=== PATIENT | male | born 1950 | race Caucasian/White ===

== ENCOUNTER → 2018-01-19 | Day surgery (SDC) | payer OTHER, MEDICARE ==
[~2018-01-19] MED LIST: HYDROmorphone 2 MG/ML VIAL IV; LIDOCAINE 1% PF 2 ML VIAL. ID; LIDOCAINE 2% 100 MG/5 ML SYRINGE.; MORPHINE SULFATE 2 MG/ML DISP.SYRIN. IV; ONDANSETRON PF 4 MG/2 ML VIAL. IV; PROCHLORPERAZINE 10 MG/2 ML VIAL. IV; PROPOFOL 20 ML IV; fentaNYL PF VIAL 100 MCG/2 ML VIAL IV
[2018-01-19] MEDS: IV RINGERS,LACTATED 1000ML 1,000 ML IV (08:23)
== END | disposition home or self-care (01) ==
LOC: ENDOS 07:55
DX: K29.50 Unspecified chronic gastritis without bleeding (principal); D50.9 Iron deficiency anemia, unspecified; E11.9 Type 2 diabetes mellitus without complications; E78.00 Pure hypercholesterolemia, unspecified; I10 Essential (primary) hypertension; F17.210 Nicotine dependence, cigarettes, uncomplicated; Z79.82 Long term (current) use of aspirin; Z98.890 Other specified postprocedural states
CPT/HCPCS: 43235; J2704

== ENCOUNTER → 2021-10-21 | Outpatient (CLI) | payer OTHER ==
[2018-01-19 09:40] VITALS: BP 161/81
[~2021-10-21] MED LIST changes: +AMLO-187 PO; +ASPI-630 PO; +ATOR10TA60 PO; +CHOL500062 PO; +CYAN-25 PO; +FERR325T14 PO; +FOLI0.8C PO; +FOLI0.8T5 PO; -HYDROmorphone 2 MG/ML VIAL IV; -LIDOCAINE 1% PF 2 ML VIAL. ID; -LIDOCAINE 2% 100 MG/5 ML SYRINGE.; +LISI5TAB15 PO; +METF500T16 PO; -MORPHINE SULFATE 2 MG/ML DISP.SYRIN. IV; -ONDANSETRON PF 4 MG/2 ML VIAL. IV; +OXYC-325 PO; -PROCHLORPERAZINE 10 MG/2 ML VIAL. IV; -PROPOFOL 20 ML IV; -fentaNYL PF VIAL 100 MCG/2 ML VIAL IV
== END ==
LOC: LAB 10:35
PROVIDERS: ATTEND Surgery
DX: Z01.812 Encounter for preprocedural laboratory examination (principal); Z20.822 Contact with and (suspected) exposure to COVID-19; K80.10 Calculus of gallbladder with chronic cholecystitis without obstruction
CPT/HCPCS: U0003; U0005

== ENCOUNTER 2021-10-26 10:07 | Day surgery (SDC) | payer OTHER ==
[~2021-10-26] VITALS: Ht 182.9 cm; Wt 86.6 kg
[~2021-10-26 10:07] MED LIST changes: +ACETAMINOPHEN 500 MG TABLET PO PRN; +BUPIVACAINE-EPI 0.25% 30 ML VIAL KIT. ONE; +DEXAMETHASONE SOD PHOS 4 MG/ML VIAL ONE; +HYDROmorphone 2 MG/ML INJ. IVP PRN; +IOHEXOL 300 MG/ML 50 ML VIAL. ONE; +IV RINGERS,LACTATED 1000ML 1,000 ML IV SCH; +LIDOCAINE 1% PF 5 ML VIAL. ONE; +MORPHINE SULFATE 2 MG/ML INJ. IVP PRN; +ONDANSETRON PF 4 MG/2 ML VIAL. ONE; -OXYC-325 PO; +PROCHLORPERAZINE 10 MG/2 ML VIAL. IVP PRN; +PROPOFOL 10 MG/ML (20ML) VIAL. IV ONE; +ROCURONIUM 50 MG/5 ML VIAL. ONE; +SURGICEL HEMOSTAT 4X8 EACH. ONE; +fentaNYL PF VIAL 100 MCG/2 ML VIAL IVP PRN; +fentaNYL PF VIAL 100 MCG/2 ML VIAL ONE
[2021-10-26 10:31] VITALS: BP 177/78
--- NOTE | 2021-10-26 12:09 | PDOC1 ---
History and Physical Date of Admission Date of Admission DATE: 10/26/21 TIME: 12:05 Identification/Chief Complaint Chief Complaint Right upper quadrant abdominal pain Source Source: Patient History of Present Illness History of Present Illness 71-year-old male with complaints of abdominal pain right upper quadrant recently hospitalized with gallstone pancreatitis in February 2021 has not had his gallbladder removed and continues to have gallstones by ultrasound Past Medical History Cardiovascular: HTN Pulmonary: No pertinent hx GI: No pertinent hx Heme/Onc: Anemia NOS Hepatobiliary: No pertinent hx Psych: No pertinent hx Rheumatologic: No pertinent hx Infectious disease: No pertinent hx ENT: No pertinent hx Renal/: No pertinent hx Endocrine: Diabetes Dermatology: No pertinent hx Past Surgical History Past Surgical History: Cataract Removal, Other (Colonoscopy) Family History Family History: No Significant Social History Smoke: No ALCOHOL: none Drugs: None Current Medications Current Medications Current Medications Fentanyl Citrate (Fentanyl 2ml Vial) 25 mcg PRN Q5MIN PRN IVP MILD PAIN 1-3; Start 10/26/21 at 06:00; Stop 10/26/21 at 20:00 Fentanyl Citrate (Fentanyl 2ml Vial) 50 mcg PRN Q5MIN PRN IVP MODERATE PAIN 4- 6; Start 10/26/21 at 06:00; Stop 10/26/21 at 19:00 Morphine Sulfate (Morphine Sulfate) 1 mg PRN Q10MIN PRN IVP SEVERE PAIN 7-10; Start 10/26/21 at 06:00; Stop 10/26/21 at 19:00 Ringer's Solution 1,000 ml @ 30 mls/hr Q24H IV Last administered on 10/26/21at 10:51; Start 10/26/21 at 06:00; Stop 10/26/21 at 17:59 Hydromorphone HCl (Dilaudid) 0.5 mg PRN Q10MIN PRN IVP SEVERE PAIN 7-10, 2nd CHOICE; Start 10/26/21 at 06:00; Stop 10/26/21 at 19:00 Prochlorperazine Edisylate (Compazine) 5 mg PACU PRN PRN IVP NAUSEA, MRX1; Start 10/26/21 at 06:00; Stop 10/26/21 at 19:00 Acetaminophen (Tylenol) 1,000 mg 1X PREOP PRN PO PRIOR TO PROCEDURE Last administered on 10/26/21at 10:51; Start 10/26/21 at 06:00; Stop 10/26/21 at 15:00 Cefazolin Sodium/ Dextrose 50 ml @ 100 mls/hr 1X PREOP PRN IV PRIOR TO PROCEDURE; Start 10/26/21 at 06:00; Stop 10/26/21 at 18:00 Bupivacaine HCl/ Epinephrine Bitart (Sensorcain-Epi 0.25% Kit) 30 ml STK-MED ONCE .ROUTE ; Start 10/26/21 at 09:53; Stop 10/26/21 at 09:54; Status DC Iohexol (Omnipaque 300 Mg/ml) 50 ml STK-MED ONCE .ROUTE ; Start 10/26/21 at 09:53; Stop 10/26/21 at 09:54; Status DC Cellulose (Surgicel Hemostat 4x8) 1 each STK-MED ONCE .ROUTE ; Start 10/26/21 at 09:53; Stop 10/26/21 at 09:54; Status DC Active Scripts Active Reported Vitamin B-12 (Cyanocobalamin (Vitamin B-12)) 1,000 Mcg Tablet 2,500 Mcg PO DAILY Folic Acid 0.8 Mg Tablet 1 Mg PO DAILY Vitamin D3 (Cholecalciferol (Vitamin D3)) 125 Mcg Tab.rapdis 125 Mcg PO DAILY Amlodipine Besylate 10 Mg Tablet 10 Mg PO DAILY Ferrous Sulfate 325 Mg Tablet 325 Mg PO DAILY Aspirin 81 Mg Tab.chew 81 Mg PO Metformin Hcl 500 Mg Tablet 500 Mg PO BIDWMEALS Lisinopril 5 Mg Tablet 10 Mg PO DAILY Allergies Allergies: Coded Allergies: No Known Drug Allergies (Unverified , 10/26/21) ROS Gastrointestinal: Yes Abdominal Pain Physical Exam General: Alert, Oriented X3, Cooperative, No acute distress HEENT: Atraumatic, PERRLA, EOMI Lungs: Clear to auscultation, Normal air movement Heart: RRR, no murmurs Abdomen: Normal bowel sounds, Soft, Other (Tender to palpation right upper) Rectal Exam: deferred Extremities: No edema Skin: No significant lesion Neuro: Normal speech Vitals Vitals Vital Signs Date Time Temp Pulse Resp B/P (MAP) Pulse Ox O2 Delivery O2 Flow Rate FiO2 10/26/21 10:43 98.6 80 18 177/78 97 Room Air 98.6 Labs Labs Laboratory Tests Test 10/26/21 10:35 Glucose (Fingerstick) 108 mg/dL (70-99) Laboratory Tests Test 10/26/21 10:35 Glucose (Fingerstick) 108 mg/dL (70-99) VTE Prophylaxis Ordered VTE Prophylaxis Devices: Yes VTE Pharmacological Prophylaxi: Contraindicated Assessment/Plan Assessment/Plan Chronic cholecystitis cholelithiasis plan laparoscopic cholecystectomy Justifications for Admission Other Justification JASON ZHAO MD Oct 26, 2021 12:09
[2021-10-26] MEDS ORDERED: GLYCOPYRROLATE 1 MG/5 ML VIAL. ONE (12:23)
[2021-10-26] MEDS ORDERED: NEOSTIGMINE METHYLSULFATE 5 MG/5 ML SYRINGE. ONE (12:23)
--- NOTE | 2021-10-26 12:45 | PDOC4 ---
Operative Note Operative Note Date: October 26, 2021 at 12:42 PM Preoperative diagnosis: Chronic cholecystitis cholelithiasis Postoperative diagnosis: Same Procedure: Laparoscopic cholecystectomy with fluorescein cholangiography Surgeon: Brandon Specimen: Gallbladder Dictation: Patient is a 71-year-old male has a history of gallstone pancreatitis. Procedure of laparoscopic cholecystectomy was explained to the patient in detail risk-benefit were also discussed including bleeding infection injury to intra-abdominal contents possible necessitating further open operations alternatives to this procedure also discussed with the patient who seemed to understand and gave a verbal written consent to have procedure performed. All this was also discussed with his as [employer]. Patient was taken the operating room placed in the supine position general anesthesia was initiated once patient was asleep and intubated his abdomen was prepped and draped in usual sterile fashion using ChloraPrep. Area just below the umbilicus inject quarter percent Marcaine with epinephrine incision was made 11 blade scalpel and varies needle was placed within the abdomen creating pneumoperitoneum once this was complete 11 mm port was placed in a 5 mm camera was placed within the abdomen which was inspected no other ab maladies were noted. A 5 mm ports placed in the epigastrium a 5 mm port was placed in the right midabdomen a 5 mm port was placed in the right lateral abdomen. The dome of the gallbladder is grasped directed cephalad the infundibulum the gallbladder is grasped retracted laterally exposing the triangle of adherent tissues the triangle were taken down exposing the cystic duct and cystic artery fluorescein cholangiography was performed which showed good dye within the cystic duct transverse into the common bile duct without any evidence of obstruction the cy stic duct and cystic artery both doubly clipped and transected the gallbladder is taken off the liver with hook electrocautery placed in Endo Catch bag move the umbilicus right upper quadrant was irrigated and suctioned dry hemostasis deemed be appropriate the pneumoperitoneum was reduced all ports were removed the fascial defect at the umbilicus was closed with [id number] 0 Vicryl suture and the skin was reapproximated all port sites for subcuticular Monocryl Mastisol Steri-Strips and island dressings were applied. Patient was awakened and extubated in the operating room taken to recovery in stable condition all sponge instrument needle counts listed as correct estimated blood loss 10 mL JASON ZHAO MD Oct 26, 2021 12:45
[2021-10-26] MEDS ORDERED: OXYC-325 PO (12:48)
--- NOTE | 2021-10-26 12:49 | DISCH ---
DISCHARGE INSTRUCTIONS Condition on Discharge Condition on Discharge: Stable Activity After Discharge Activity Instructions for Disc: Avoid exertion Other activity instructions: No lifting more than 20 pounds for 2 Diet after Discharge Diet after Discharge: Low Fat Wound Incision Care Other wound/incision instructi: Rizwana kim 24-hour Contacting the after DC Call your doctor for: If your condition worsens Follow-Up Follow up with: Dr. Zhao in 2 weeks JASON ZHAO MD Oct 26, 2021 12:49
[2021-10-26] MEDS ORDERED: fentaNYL PF VIAL 100 MCG/2 ML VIAL ONE (13:17)
[2021-10-26] MEDS: fentaNYL PF VIAL 100 MCG/2 ML VIAL IVP PRN ×2 (13:19→13:30)
[2021-10-26] MEDS ORDERED: oxyCODONE/APAP 5/325 1 TAB TABLET PO ONE (13:30)
[2021-10-26 14:00] VITALS: BP 145/70
--- NOTE | 2021-10-27 18:06 | PATHOLOGY ---
[facility] Accession Number: [id number] . 01 Material submitted: . gallbladder - GALLBLADDER AND CONTENTS . 01 Clinical history: . CHRONIC CHOLECYSTITIS LAP ZEB . 02 Diagnosis: Gallbladder, laparoscopic cholecystectomy: - Cholelithiasis. - Chronic cholecystitis. 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 (JPM:marjan; 10/27/2021) S 10/27/2021 1418 Local . 02 Comment: There is no evidence of malignancy. (JPM:marjan; 10/27/2021) . 02 Electronically signed: . Javid Ghosh MD, Pathologist NPI- [id number] . 01 Gross description: . Fixative: Formalin Labeled: Gallbladder and contents Specimen received: Previously disrupted gallbladder Dimensions: 7.1 x 2.8 x 1.2 cm Serosa: Green-roper and wrinkled with a mild amount of adipose tissue Lymph node: Identified Mucosa: Velvety, bile-stained Average wall thickness: Up to 0.5 cm Calculi: Present displaying a black and nodular appearance Abnormalities: None identified . A1- Home Administrator body, fundus, and the cystic duct margin. A2- Lymph node, bisected ([facility]; 10/26/2021) NRI/NRI 10/26/2021 1905 Local . 02 Pathologist provided ICD-10: K80.10 . 02 CPT . 762969 Specimen Comment: A courtesy copy of this report has been sent to [phone], [phone] Specimen Comment: [id number] Specimen Comment: Report sent to / DR DIAZ Specimen Comment: A duplicate report has been generated due to demographic updates. Performed at: [address] [place] [address] [address], [place], [place] [id number] MD Trevor Beltrna MD Phone: [phone] Performed at: [address] [id number] MD Javid Ghosh MD Phone: [phone]
== END 2021-10-26 14:12 | disposition home or self-care (01) ==
LOC: SURG 10:07
PROVIDERS: ATTEND Surgery
DX: K80.10 Calculus of gallbladder with chronic cholecystitis without obstruction (principal); I10 Essential (primary) hypertension; E78.00 Pure hypercholesterolemia, unspecified; E11.9 Type 2 diabetes mellitus without complications; Z79.82 Long term (current) use of aspirin; Z79.84 Long term (current) use of oral hypoglycemic drugs; Z79.899 Other long term (current) drug therapy; Z98.890 Other specified postprocedural states
CPT/HCPCS: 47563; 82962; 88304; A4213; A4930; A6219; J0690; J3010; A4657; J1100; J2405; J2704; J2710; J3490; Q9967